=== PATIENT | male | born 1965 | race Caucasian/White ===

== ENCOUNTER 2024-09-23 10:39 | Day surgery (SDC) | payer BC ==
[2024-09-23] VITALS (7 sets, daily range): BP systolic 115–136; BP diastolic 79–91; PULSE 67–83; RESP 15–20; TEMP 98.4; O2SAT 93–99
[~2024-09-23] VITALS: Ht 185.4 cm; Wt 90.6 kg
[2024-09-23] MEDS ORDERED: clindamycin-Cleocin 900mg/D5W 50 ML IV ONE (11:20)
[2024-09-23] MEDS ORDERED: METO-395 PO (11:31)
[2024-09-23] MEDS ORDERED: ATOR-2 PO (11:31)
[2024-09-23] MEDS ORDERED: ASPI-1265 PO (11:33)
[2024-09-23] MEDS ORDERED: OMEG12002 PO (11:33)
[2024-09-23] MEDS ORDERED: MULT-1085 PO (11:33)
[2024-09-23] MEDS: VANCOMYCIN/WATER FOR INJ (PEG) 1.5GM/300 ML IVPB IV ONE (11:38)
[2024-09-23] MEDS: normal saline 1000ml 1,000 ML IV ONE (11:38)
[2024-09-23 11:47] LABS: ALBUMIN 4.6 G/DL (3.4-5.0); ANION GAP 12 (8-16); BLOOD UREA NITROGEN 15 MG/DL (7-18); BUN/CREATININE RATIO 15.5 (10.0-20.0); CHLORIDE 108 MMOL/L (99-107); CREATININE 0.97 MG/DL (0.60-1.10); GLUCOSE 118 MG/DL (70-104); SODIUM 141 MMOL/L (135-145); TOTAL CARBON DIOXIDE 20.8 MMOL/L (24-32); eCRCL 92 ML/MIN; eGFR 79 ML/MIN
[2024-09-23 11:48] LABS: BASOPHILS % (AUTO) 0.3 % (0-1); EOSINOPHILS # (AUTO) 0.1 X10'3 (0-0.9); EOSINOPHILS % (AUTO) 1.2 % (0-6); HEMATOCRIT 44.2 % (42.0-52.0); HEMOGLOBIN 15.4 g/dl (14.0-17.9); LYMPHOCYTES # (AUTO) 2.4 X10'3 (1.1-4.8); MEAN CORPUSCULAR HGB CONC 34.9 g/dL (33.0-36.5); MEAN CORPUSCULAR VOLUME 88.8 FL (78-98); MEAN PLATELET VOLUME 9.6 FL (7.4-10.4); MONOCYTES # (AUTO) 0.7 X10'3 (0-0.9); MONOCYTES % (AUTO) 5.7 % (2-12); NEUTROPHILS # (AUTO) 8.9 X10'3 (1.8-7.7); NEUTROPHILS % (AUTO) 72.8 % (42-75); PLATELET COUNT 197 X10'3 (140-440); RED BLOOD COUNT 4.97 X10'6 (4.70-6.10); RED CELL DISTRIBUTION WIDTH 13.4 % (11.5-14.5); WHITE BLOOD COUNT 12.2 X10'3 (4.5-11.0)
[2024-09-23 11:49] LABS: PROTHROMBIN TIME 10.8 SECONDS (9.0-12.0)
[2024-09-23] MEDS ORDERED: midazolam 1 mg/ML 2ml injection ONE (11:56)
[2024-09-23] MEDS ORDERED: LIDOcaine 1% W/epiNEPHrine 1:100,000 20ml vial ONE (11:56)
[2024-09-23] MEDS ORDERED: fentaNYL/PF 50MCG/1 ML 2ML syringe ONE (11:56)
[2024-09-23] MEDS ORDERED: clindamycin 600mg/D5W 50ml 50 ML IV ONE (12:08)
[2024-09-23] MEDS ORDERED: normal saline 500ml IV soln 500 ML IV ONE (13:30)
== END 2024-09-23 14:35 | disposition home or self-care (01) ==
LOC: SSTAY O 10:39
PROVIDERS: ATTEND Internal Medicine Cardiovascular Disease
DX: I63.9 Cerebral infarction, unspecified (principal); R55 Syncope and collapse; I71.9 Aortic aneurysm of unspecified site, without rupture; I25.118 Atherosclerotic heart disease of native coronary artery with other forms of angina pectoris; E78.5 Hyperlipidemia, unspecified; I10 Essential (primary) hypertension; Z79.899 Other long term (current) drug therapy; Z98.890 Other specified postprocedural states; Z88.0 Allergy status to penicillin
CPT/HCPCS: 33285; 36415; 80048; 85025; 85610; 93005; 99152; C1764; J2250; J3010; J3372; J3490; J7030; 99153; A6449